=== PATIENT | female | born 1950 | race Caucasian/White ===

== ENCOUNTER 2023-04-04 18:53 | Observation (INO) | payer MEDICARE, SELFPAY ==
[2023-04-04] VITALS (20 sets, daily range): BP systolic 151–204; BP diastolic 70–98; PULSE 66–89; RESP 14–18; TEMP 36.9–37.1; O2SAT 92–99; BMI 32.9; BMI 33.8
--- NOTE | 2023-04-04 19:22 | ECG_ITS ---
[facility] Test Date: 2023-04-04 Pat Name: TANISHA MOORE Department: Room: - Gender: Female [place]: : 1950 Requested By: Edison Galicia Order Number: [id number] Reading MD: STORMY BHATIA Measurements Intervals [place] Rate: 77 P: 43 OR: 162 QRS: -11 QRSD: 98 T: 40 QT: 388 QTc: 419 Interpretive Statements 1100 Sinus rhythm 2420 RSR (QR) in lead V1/V2, consistent with right ventricular conduction delay Anteroseptal ischemia can't be excluded 9150 abnormal ECG Electronically Signed On 04-04-2023 22:21:48 EST by STORMY BHATIA
--- NOTE | 2023-04-04 19:22 | XR_ITS ---
The [address] [address] Patient Name: TANISHA MOORE MRN: [id number] date: 1950 Sex: F Assigned Patient Location: ER Current Patient Location: ER Accession/Order Number: [id number] Exam Date: 04/04/2023 19:25 Report Date: 04/04/2023 19:41 At the request of: ANNAMARIA SALINAS Procedure: XR chest 1V EXAM: XR chest 1V HISTORY: CVA COMPARISON: Chest x-ray 07/14/2021 and earlier TECHNIQUE: AP upright chest x-ray 7:26 PM FINDINGS: Lungs clear without infiltrate or edema or focal lung lesion. Cardiac silhouette prominent, accentuated by magnification without significant change. No definite mass or adenopathy. No pleural effusion or pneumothorax. XR/XR chest 1V IMPRESSION: Stable chest x-ray, no acute findings. Electronically authenticated by: BIBI AREVALO Date: 04/04/2023 19:41
--- NOTE | 2023-04-04 19:22 | CT_ITS ---
The [address] [address] Patient Name: TANISHA MOORE MRN: [id number] date: 1950 Sex: F Assigned Patient Location: ER Current Patient Location: ER Accession/Order Number: [id number] Exam Date: 04/04/2023 19:25 Report Date: 04/04/2023 19:40 At the request of: ANNAMARIA SALINAS Procedure: CT stroke head/brain wo con EXAM: CT stroke head/brain wo con HISTORY: Confusion since last night. TECHNIQUE: Axial CT scans through the head were obtained without IV contrast administration. Dose reduction techniques were achieved by using: automated exposure control and/or adjustment of mA and/or kV according to patient size and/or use of iterative reconstruction technique. COMPARISON: None. FINDINGS: Mild periventricular low attenuation in the cerebral hemispheres without associated mass effect. The brainstem and the cerebellum appear normal. The ventricular system and cortical sulci are prominent, secondary to cerebral volume loss. No area of abnormal mass effect, edema, or intracranial hemorrhage is shown. The visualized orbits show no abnormal mass. The visualized paranasal sinuses show no air-fluid level. Mastoid air cells are clear. CT/CT stroke head/brain wo con IMPRESSION: 1. Mild old microvascular ischemic change and age-related cerebral atrophy. 2. No acute intracranial process. Electronically authenticated by: SYDNEY HATCH Date: 04/04/2023 19:40
--- NOTE | 2023-04-04 19:39 | ED.GENADUL1 ---
HPI - General Adult General Chief complaint: Headache Stated complaint: Fever Covid + 04/04/23 Time Seen by Provider: 04/04/23 19:22 Source: patient Mode of arrival: walk-in Limitations: no limitations History of Present Illness HPI narrative: Patient is a 73-year-old female who presents to the emergency department with her son for the evaluation of multiple symptoms. She states last night she had a headache and had difficulty sleeping so she takes she took a COVID test which was positive. She states she was coming to the hospital to be evaluated because her son noted she had expressive aphasia. She has not had any slurred speech, visual changes, chest pain, shortness of breath, peripheral paresthesias. She has a history of 2 previous TIAs. At this time, patient is able to carry on a full conversation, she answers all questions appropriately and her son feels as though her expressive aphasia is better at this time. She has not had any fevers. No vomiting or diarrhea. Related Data Home Medications Medication Instructions Recorded Confirmed atorvastatin 20 mg tablet 20 mg PO BEDTIME 04/04/23 04/04/23 chlorthalidone 25 mg tablet 25 mg PO DAILY 04/04/23 04/04/23 digoxin 125 mcg (0.125 mg) tablet 0.125 mg PO .HS 04/04/23 04/04/23 magnesium oxide 400 mg (241.3 mg 400 mg PO .Q12 04/04/23 04/04/23 magnesium) tablet metoprolol tartrate 50 mg tablet 50 mg PO Q12H 04/04/23 04/04/23 valsartan 160 mg tablet 160 mg PO DAILY 04/04/23 04/04/23 warfarin 5 mg tablet 7.5 mg PO DAILY 04/04/23 04/04/23 Allergies Allergy/AdvReac Type Severity Reaction Status Date / Time No Known Drug Allergies Allergy Verified 04/04/23 19:19 Review of Systems ROS Constitutional Denies: fever or chills Eyes Denies: change in vision Ears, nose, mouth, and throat Denies: throat pain Cardiovascular Denies: chest pain Respiratory Denies: shortness of breath Gastrointestinal Denies: nausea or vomiting Musculoskeletal Denies: back pain or neck pain Integumentary/Breast Denies: rash Neurological Reports: headache Hematologic/Lymphatic Denies: easy bruising PFSH PFS Surgical History (Updated 04/04/23 @ 23:18 by Essence Luke) History of tubal ligation ?Z98.51 - Tubal ligation status (ICD-10) Family History (Updated 04/04/23 @ 23:18 by Essence Luke) Other Family history of CHF (congestive heart failure) Family history of hypertension Family history of myocardial infarction Social History (Updated 04/04/23 @ 23:19 by Essence Luke) Within the past year, how often did you have a drink containing alcohol: never Within the past year, how many standard drinks containing alcohol did you have on a typical day: 1 or 2 Within the past year, how often did you have six or more drinks on one occasion: never Total score: 0 Score interpretation: A score less than 3 is consistent with normal alcohol consumption. Smoking status: Never smoker Non-prescribed substance use: denies use Previous occupational history: retired Highest level of school completed/degree received: high school graduate Are you now , , , , never or living with a partner: In a typical week, how many times do you talk on the telephone with family, friends, or neighbors: 3 or more times per week How often do you get together with friends or relatives: 3 or more times per week Little interest or pleasure in doing things: not at all Feeling down, depressed, or hopeless: not at all Feel stressed/tense/nervous/anxious/difficulty sleeping: not at all Do you think of yourself as: straight/heterosexual Gender Identity: female Exam Narrative Exam Narrative: Gen.: Awake, alert, in no distress Head: Normocephalic, atraumatic ENT: Moist mucous membranes Respiratory: No respiratory distress, lungs clear bilaterally Cardio: Regular rate and rhythm Gastrointestinal: Abdomen is soft, nondistended and nontender to palpation Extremities: Moves extremities equally, no injuries noted Psych: Normal mood and affect Neuro: No focal neuro deficit; NIH stroke scale of 0 Skin: Warm, dry, intact Constitutional Vital Signs, click to edit/add: Last Vital Signs Temp 98.9 F 04/05/23 05:35 Pulse 64 04/05/23 06:00 Resp 18 04/05/23 05:35 BP 163/67 H 04/05/23 05:35 Pulse Ox 94 L 04/05/23 05:35 O2 Del Method Room Air 04/05/23 05:35 Course Vital Signs Vital signs: Vital Signs Temperature 98.7 F 04/04/23 19:12 Pulse Rate 89 04/04/23 19:12 Respiratory Rate 16 04/04/23 19:12 Blood Pressure 204/98 H 04/04/23 19:12 Pulse Oximetry 97 04/04/23 19:12 Oxygen Delivery Method Room Air 04/04/23 19:12 Temperature 98.9 F 04/05/23 05:35 Pulse Rate 64 04/05/23 06:00 Respiratory Rate 18 04/05/23 05:35 Blood Pressure 163/67 H 04/05/23 05:35 Pulse Oximetry 94 L 04/05/23 05:35 Oxygen Delivery Method Room Air 04/05/23 05:35 Medical Decision Making MDM Narrative Medical decision making narrative: On arrival to the ER, patient has an NIH stroke scale of 0. Blood pressure improved without labetalol that was ordered for her, CT of the brain, chest x-ray obtained. Patient was also sent for CT angio of the head and neck due to TIA symptoms although her son at bedside is in agreement that her symptoms have significantly improved and the patient states she is feeling well at this time. She is positive for COVID, INR is 2.77. Patient is not a tPA candidate, I discussed the case with Dr. Ibrahim at [facility] for stroke interventionalists. He is in agreement with treatment plan to keep the patient at this facility for TIA workup. Stable at time of admission. Medical Records Medical records reviewed: Yes I reviewed the patient's medical records Lab Data Lab results reviewed: Yes I reviewed the patient's lab results Labs: Lab Results 04/04/23 04/04/23 Range/Units 19:34 20:22 WBC 5.3 (4.0-11.0) 10^3/uL RBC 4.63 (4.20-5.40) 10^6/uL Hgb 13.0 (12.0-16.0) g/dL Hct 40.3 (36.0-48.0) % MCV 87.0 (81.0-99.0) fL MCH 28.1 (26.7-34.0) pg MCHC 32.3 (29.9-35.2) g/dL RDW 14.3 (11.0-15.0) % Plt Count 186 (150-450) 10^3/uL MPV 9.5 (9.5-13.5) fL Neut % (Auto) 69.8 (43.0-75.0) % Lymph % (Auto) 17.1 L (20.5-60.0) % [place] % (Auto) 11.0 (1.7-12.0) % Eos % (Auto) 1.1 (0.9-7.0) % Baso % (Auto) 0.4 (0.2-2.0) % Neut # (Auto) 3.7 (1.4-6.5) 10^3/uL Lymph # (Auto) 0.9 L (1.2-3.8) 10^3/uL [place] # (Auto) 0.6 (0.3-0.8) 10^3/uL Eos # (Auto) 0.1 (0.0-0.7) 10^3/uL Baso # (Auto) 0.0 (0.0-0.1) 10^3/uL Abs Immat Gran (auto) 0.03 (0.00-0.03) 10^3/uL Imm/Tot Granulo (auto) 0.6 H (0.0-0.5) % PT 27.7 H (9.0-11.6) sec INR 2.77 Sodium 143 (136-145) mmol/L Potassium 3.6 (3.5-5.1) mmol/L Chloride 104 (98-107) mmol/L Carbon Dioxide 26.2 (21.0-32.0) mmol/L Anion Gap 16.4 BUN 17.0 (7.0-18.0) mg/dL Creatinine 1.00 (0.55-1.02) mg/dL Est GFR ( Amer) >60 (>=60) Est GFR (Non-Af Amer) 55 L (>=60) BUN/Creatinine Ratio 17.0 Glucose 143 H (74-106) mg/dL Lactate 2.0 (0.4-2.0) mmol/L Calcium 9.3 (8.5-10.1) mg/dL Total Bilirubin 0.7 (0.2-1.0) mg/dL AST 33 (15-37) U/L ALT 53 (14-59) U/L Alkaline Phosphatase 111 (46-116) U/L Troponin I High Sens 6.0 (4.0-51.3) pg/mL C-Reactive Protein 0.96 H (<=0.50) mg/dL Total Protein 7.7 (6.4-8.2) g/dL Albumin 3.8 (3.4-5.0) g/dL Globulin 3.9 g/dL Albumin/Globulin Ratio 1.0 TSH 1.179 (0.358-3.740) uIU/mL Digoxin 0.3 L (0.9-2.0) ng/mL SARS-CoV-2 Ag (CV2AG) Positive A (NEGATIVE) Imaging Data CT scan - head: Attestation: I have reviewed the pertinent imaging results. Radiologist's impression: ITS Impressions Brain CT 04/04/23 19:22 IMPRESSION: 1. Mild old microvascular ischemic change and age-related cerebral atrophy. 2. No acute intracranial process. Electronically authenticated by: SYDNEY HATCH Date: 04/04/2023 19:40 Chest X-Ray 04/04/23 19:22 IMPRESSION: Stable chest x-ray, no acute findings. Electronically authenticated by: BIBI AREVALO Date: 04/04/2023 19:41 Head CTA 04/04/23 19:48 IMPRESSION: 1. No flow limiting arterial stenosis within the neck. 2. No evidence of an intracranial large vessel occlusion. Electronically authenticated by: EBONIE SOUZA Date: 04/04/2023 20:56 Neck CTA 04/04/23 19:48 IMPRESSION: 1. No flow limiting arterial stenosis within the neck. 2. No evidence of an intracranial large vessel occlusion. Electronically authenticated by: EBONIE SOUZA Date: 04/04/2023 20:56 ECG Data Attestation: I personally reviewed and interpreted this ECG as follows: (Normal sinus rhythm at a rate of 77, no acute ST elevation or ectopy. EKG reviewed by attending physician) Discharge Plan Discharge Chief Complaint: Headache Clinical Impression: TIA (transient ischemic attack), Headache, COVID-19 Patient Disposition: Admitted as Observation Condition: Good Discharge Date/Time: 04/04/23 23:00
[2023-04-04 19:44] LABS: Basophils Percent Auto 0.4 % (0.2-2.0); Eosinophils Absolute Auto 0.1 10^3/uL (0.0-0.7); Eosinophils Percent Auto 1.1 % (0.9-7.0); Hematocrit 40.3 % (36.0-48.0); Immature Granulocytes Abs Auto 0.03 10^3/uL (0.00-0.03); Immature Granulocytes Pct Auto 0.6 % (0.0-0.5); Lymphocytes Absolute Auto 0.9 10^3/uL (1.2-3.8); Lymphocytes Percent Auto 17.1 % (20.5-60.0); Mean Corpuscular HGB Conc 32.3 g/dL (29.9-35.2); Mean Corpuscular Hemoglobin 28.1 pg (26.7-34.0); Mean Platelet Volume 9.5 fL (9.5-13.5); Monocytes Absolute Auto 0.6 10^3/uL (0.3-0.8); Neutrophils Absolute Auto 3.7 10^3/uL (1.4-6.5); Neutrophils Percent Auto 69.8 % (43.0-75.0); Platelet Count 186 10^3/uL (150-450); Red Blood Count 4.63 10^6/uL (4.20-5.40); Red Cell Distribution Width 14.3 % (11.0-15.0); White Blood Count 5.3 10^3/uL (4.0-11.0)
--- NOTE | 2023-04-04 19:48 | CT_ITS ---
The [address] [address] Patient Name: TANISHA MOORE MRN: [id number] date: 1950 Sex: F Assigned Patient Location: ER Current Patient Location: ER Accession/Order Number: [id number] Exam Date: 04/04/2023 20:00 Report Date: 04/04/2023 20:56 At the request of: ANNAMARIA SALINAS Procedure: CT angio head EXAM: CT angio neck, CT angio head HISTORY: TIA COMPARISON: CTA head and neck from 07/14/2021. TECHNIQUE: Axial images were obtained from the aortic arch through [place] following the intravenous administration of contrast. Sagittal and coronal maximal intensity projections (MIP) of the head and neck were provided. Three-dimensional volume rendered reformations were also submitted. COMMENT: The integrity of the aortic arch, as well as origins of the brachiocephalic and left common carotid arteries have inadvertently been excluded from the volume of interest utilized to perform this study and are not evaluated. FINDINGS: CTA NECK: The brachiocephalic and left common carotid artery origins are again not included on the volume of interest utilized to perform this study and are not evaluated. The left subclavian artery is patent at its origin from the aortic arch. More distally, the left subclavian artery is also widely patent. Calcified results in mild segmental narrowing of the proximal right subclavian artery. There is a small amount of calcification in the region of the left carotid bifurcation. No hemodynamically significant region of extracranial carotid narrowing, dissection or evidence of carotid occlusion. The left vertebral artery is dominant with the right vertebral artery smaller in caliber. Both vertebral arteries are patent at their origins and throughout their course within the neck. Nonspecific nodular regions of relative under enhancement are seen within the thyroid on the left. CTA HEAD: Vascular calcifications are seen along the course of the carotid siphon. No flow limiting intracranial arterial stenosis or evidence of large vessel occlusion. There is no evidence of an intracranial aneurysm. The A1 segment of the right anterior cerebral artery is hypoplastic and much smaller than its counterpart on the left. This finding reflects developmental intracranial vascular variation. CT/CT angio head IMPRESSION: 1. No flow limiting arterial stenosis within the neck. 2. No evidence of an intracranial large vessel occlusion. Electronically authenticated by: EBONIE SOUZA Date: 04/04/2023 20:56
--- NOTE | 2023-04-04 19:48 | CT_ITS ---
The [address] [address] Patient Name: TANISHA MOORE MRN: [id number] date: 1950 Sex: F Assigned Patient Location: ER Current Patient Location: ER Accession/Order Number: [id number] Exam Date: 04/04/2023 20:00 Report Date: 04/04/2023 20:56 At the request of: ANNAMARIA SALINAS Procedure: CT angio neck EXAM: CT angio neck, CT angio head HISTORY: TIA COMPARISON: CTA head and neck from 07/14/2021. TECHNIQUE: Axial images were obtained from the aortic arch through [place] following the intravenous administration of contrast. Sagittal and coronal maximal intensity projections (MIP) of the head and neck were provided. Three-dimensional volume rendered reformations were also submitted. COMMENT: The integrity of the aortic arch, as well as origins of the brachiocephalic and left common carotid arteries have inadvertently been excluded from the volume of interest utilized to perform this study and are not evaluated. FINDINGS: CTA NECK: The brachiocephalic and left common carotid artery origins are again not included on the volume of interest utilized to perform this study and are not evaluated. The left subclavian artery is patent at its origin from the aortic arch. More distally, the left subclavian artery is also widely patent. Calcified results in mild segmental narrowing of the proximal right subclavian artery. There is a small amount of calcification in the region of the left carotid bifurcation. No hemodynamically significant region of extracranial carotid narrowing, dissection or evidence of carotid occlusion. The left vertebral artery is dominant with the right vertebral artery smaller in caliber. Both vertebral arteries are patent at their origins and throughout their course within the neck. Nonspecific nodular regions of relative under enhancement are seen within the thyroid on the left. CTA HEAD: Vascular calcifications are seen along the course of the carotid siphon. No flow limiting intracranial arterial stenosis or evidence of large vessel occlusion. There is no evidence of an intracranial aneurysm. The A1 segment of the right anterior cerebral artery is hypoplastic and much smaller than its counterpart on the left. This finding reflects developmental intracranial vascular variation. CT/CT angio neck IMPRESSION: 1. No flow limiting arterial stenosis within the neck. 2. No evidence of an intracranial large vessel occlusion. Electronically authenticated by: EBONIE SOUZA Date: 04/04/2023 20:56
[2023-04-04 19:59] LABS: INR 2.77; Prothrombin Time 27.7 sec (9.0-11.6)
[2023-04-04 20:05] LABS: Alanine Aminotransferase 53 U/L (14-59); Albumin Level 3.8 g/dL (3.4-5.0); Alkaline Phosphatase 111 U/L (46-116); Anion Gap 16.4; Aspartate Amino Transferase 33 U/L (15-37); Bilirubin Total 0.7 mg/dL (0.2-1.0); Calcium 9.3 mg/dL (8.5-10.1); Carbon Dioxide 26.2 mmol/L (21.0-32.0); Chloride 104 mmol/L (98-107); Estimated GFR (African America >60 (>=60); Estimated GFR (Non-African Ame 55 (>=60); Globulin 3.9 g/dL; Glucose 143 mg/dL (74-106); Potassium 3.6 mmol/L (3.5-5.1); Sodium 143 mmol/L (136-145); Total Protein 7.7 g/dL (6.4-8.2)
[2023-04-04 20:52] LABS: SARS-CoV-2 Ag POSITIVE (NEGATIVE)
[2023-04-04 22:00] LABS: Thyroid Stimulating Hormone 1.179 uIU/mL (0.358-3.740)
[2023-04-04 22:02] LABS: C Reactive Protein 0.96 mg/dL (<=0.50)
[2023-04-04 23:45] LABS: Digoxin 0.3 ng/mL (0.9-2.0)
[2023-04-05] VITALS (12 sets, daily range): BP systolic 142–178; BP diastolic 67–77; PULSE 60–74; RESP 18; TEMP 37.2–37.3; O2SAT 91–94
[2023-04-05] MEDS: MAGNESIUM OXIDE 400 MG TABLET PO ×2 (00:52→08:29)
[2023-04-05] MEDS: ATORVASTATIN CALCIUM 20 MG TABLET PO (00:52)
[2023-04-05] MEDS: METOPROLOL TARTRATE 50 MG TABLET PO ×2 (00:52→08:29)
[2023-04-05] MEDS: DIGOXIN 125 MCG TABLET PO (00:53)
[2023-04-05 05:29] LABS: INR 2.21; Prothrombin Time 22.4 sec (9.0-11.6)
[2023-04-05 05:31] LABS: Estimated Average Glucose 120 mg/dL; Glycohemoglobin A1C 5.8 % (4.5-6.2)
[2023-04-05 05:38] LABS: Anion Gap 14.2; Calcium 8.9 mg/dL (8.5-10.1); Carbon Dioxide 26.6 mmol/L (21.0-32.0); Chloride 105 mmol/L (98-107); Estimated GFR (African America >60 (>=60); Estimated GFR (Non-African Ame >60 (>=60); Glucose 108 mg/dL (74-106); Magnesium 2.1 mg/dL (1.8-2.4); Potassium 3.8 mmol/L (3.5-5.1); Sodium 142 mmol/L (136-145)
[2023-04-05 05:43] LABS: Cholesterol 150 mg/dL (<=200); HDL Cholesterol 53 mg/dL (40-60); Triglycerides 69 mg/dL (<=150); VLDL CHOLESTEROL 13.8 mg/dL
[2023-04-05 05:44] LABS: Chol HDL Ratio 2.8
--- NOTE | 2023-04-05 07:00 | CA_ITS ---
Patient Name: TANISHA MOORE MR#: [id number] : 1950 Exam Date: 04/05/2023 Ordering Doctor: DR ERMIAS HUMPHREY . ECHOCARDIOGRAM REPORT PROCEDURE: CA ECHO DOPPLER COMPLETE INDICATIONS: TIA, Covid+, h/o atrial fibrillation, h/o TIA's COMPARISON: None. DESCRIPTION: COMPLETE ECHOCARDIOGRAM Real-time transthoracic echocardiography with 2D, M-mode, spectral and color flow Doppler performed. QUALITY: Technical quality was good. 66 , 209#, BSA LEFT VENTRICLE: Normal chamber size. Normal left ventricular wall thickness. LV EF: Global left ventricular systolic function is hyperdynamic; visually estimated ejection fraction is 65 to 70%. No obvious wall motion abnormalities. DIASTOLIC: Normal diastolic function. ATRIAL SEPTUM: Agitated saline contrast (suboptimal study) reveals no intra-cardiac shunt. LEFT ATRIUM: Normal chamber size. RIGHT ATRIUM: Normal chamber size. RIGHT VENTRICLE: Normal chamber size. Normal right ventricular systolic function. TRICUSPID VALVE: Normal mobility and thickness. No stenosis with no regurgitation. Unable to assess right-sided pressures due to lack of measurable tricuspid regurgitation. MITRAL VALVE: Normal mobility and thickness. No evidence of mitral valve stenosis. There is no mitral annular calcification. No mitral regurgitation. AORTIC VALVE: Normal trileaflet appearance. No visible sclerosis. Normal leaflet mobility. No evidence of aortic valve stenosis. Trivial aortic regurgitation. AORTIC ROOT: Normal diameter and appearance. PULMONIC VALVE: Normal thickness and mobility. No stenosis. No regurgitation. PERICARDIUM: Anterior free space; trivial effusion versus fat pad. IVC: Not well visualized. CONCLUSION: 1. Global left ventricular systolic function is hyperdynamic; visually estimated ejection fraction 65 to 70% 2. Normal right ventricular size and systolic function 3. Normal diastolic function 4. No significant valvular abnormalities 5. Agitated saline contrast study shows no obvious intracardiac shunts 6. Anterior free space; trivial effusion versus fat pad Adult Echocardiography Procedure Report Left Ventricle LVEDD (3.7 - 5.6 cm): 5.08 cm LVESD (2.2 - 4.0 cm): 2.57 cm LVIVS thickness (0.6 - 1.2 cm): 0.78 cm LVPW thickness (0.5 - 1.0 cm): 0.74 cm LVOT Max Gradient: 4.09 mm[Hg] LVOT Area (cm2): 1.01 m/s Peak Velocity (LVOT): 1.01 m/s Mean Velocity (LVOT): 0.70 m/s LVOT Diameter 1.91 cm Left Atrium LA Volume Index (2D A2C): 29.85 ml/m2 Left Atrium Systolic Dimension: 3.16 cm Mitral Valve MV E to A Ratio: 0.69 Mitral Valve A-Wave Peak Velocity: 0.86 m/s Mitral Valve E-Wave Peak Velocity: 0.60 m/s Right Ventricle Aorta AO Root Diam: 3.18 cm Ascending Ao Diam: 2.92 cm Aortic Valve AoV Area (Peak Deven): 1.99 cm2, 1.99 cm2 AoV Area (VTI): 1.93 cm2, 1.93 cm2 Peak Velocity(Antegrade Flow): 1.45 m/s Peak Gradient(Antegrade Flow): 8.43 mm[Hg] Mean Velocity(Antegrade Flow): 0.97 m/s Mean Gradient(Antegrade Flow): 4.41 mm[Hg] Velocity Time Integral: 29.97 cm Tricuspid Valve Pulmonic Valve Mean Gradient: 2.82 mm[Hg], 2.38 mm[Hg] Mean Velocity: 0.78 m/s, 0.72 m/s Peak Velocity: 1.10 m/s Peak Gradient: 5.47 mm[Hg], 4.24 mm[Hg] Right Atrium Right Atrium Systolic Pressure: 19.88 ml, 19.88 ml Dictated by: Milagro Anders M.D. on 04/05/2023 at 15:43 Approved by: Milagro Anders M.D. on 04/05/2023 at 15:48
[2023-04-05] MEDS: LOSARTAN POTASSIUM 50 MG TABLET 100 MG PO (08:29)
[2023-04-05] MEDS: CHLORTHALIDONE 25 MG TABLET PO (08:29)
--- NOTE | 2023-04-05 10:57 | CM.NOTE ---
Rounds made with Dr. Rushing, pt will have MRI today. Pt asking about discharge to home, Dr. Rushing will discharge today if MRI negative.
--- NOTE | 2023-04-05 12:01 | PM.HP ---
H&P: HPI History of Present Illness Chief complaint: Fever Covid + 04/04/23 TIA COVID+ Narrative: 73 y/o female to ER with ENGLISH and covid positive. History of TIA in past and son noticed she wasn't acting right. Patient had a hard time finding words and felt like not thinking as clearly. No slurred speech. No weakness in arms or legs and no problems walking. No vertigo. To ER and CT head negative. CTA head and neck without stenosis. ER spoke to tele-neurology and recommended admission for stroke work up. Patient feels well this am and no deficits. Covid postive and mild cough and congestion. Afebrile. Review of Systems ROS Constitutional Denies: fever, chills or fatigue Cardiovascular Denies: chest pain, palpitations or edema Respiratory Reports: cough; Denies: shortness of breath or wheezing Gastrointestinal Denies: abdominal pain, nausea, vomiting or diarrhea Genitourinary Denies: painful urination Neurological Denies: numbness in extremities or weakness in extremities PFSH PFS Medical History (Updated 04/05/23 @ 07:56 by Primitivo Rushing MD) Headache ?R51.9 - Headache, unspecified (ICD-10) TIA (transient ischemic attack) ?G45.9 - Transient cerebral ischemic attack, unspecified (ICD-10) Surgical History (Updated 04/04/23 @ 23:18 by Essence Luke) History of tubal ligation ?Z98.51 - Tubal ligation status (ICD-10) Family History (Updated 04/04/23 @ 23:18 by Essence Luke) Other Family history of CHF (congestive heart failure) Family history of hypertension Family history of myocardial infarction Social History (Updated 04/04/23 @ 23:19 by Essence Luke) Within the past year, how often did you have a drink containing alcohol: never Within the past year, how many standard drinks containing alcohol did you have on a typical day: 1 or 2 Within the past year, how often did you have six or more drinks on one occasion: never Total score: 0 Score interpretation: A score less than 3 is consistent with normal alcohol consumption. Smoking status: Never smoker Non-prescribed substance use: denies use Previous occupational history: retired Highest level of school completed/degree received: high school graduate Are you now , , , , never or living with a partner: In a typical week, how many times do you talk on the telephone with family, friends, or neighbors: 3 or more times per week How often do you get together with friends or relatives: 3 or more times per week Little interest or pleasure in doing things: not at all Feeling down, depressed, or hopeless: not at all Feel stressed/tense/nervous/anxious/difficulty sleeping: not at all Do you think of yourself as: straight/heterosexual Gender Identity: female Meds Home Medications and Allergies Home Medications Medication Instructions Recorded Confirmed Type atorvastatin 20 mg tablet 20 mg PO BEDTIME 04/04/23 04/04/23 History chlorthalidone 25 mg tablet 25 mg PO DAILY 04/04/23 04/04/23 History digoxin 125 mcg (0.125 mg) tablet 0.125 mg PO .HS 04/04/23 04/04/23 History magnesium oxide 400 mg (241.3 mg 400 mg PO .Q12 04/04/23 04/04/23 History magnesium) tablet metoprolol tartrate 50 mg tablet 50 mg PO Q12H 04/04/23 04/04/23 History valsartan 160 mg tablet 160 mg PO DAILY 04/04/23 04/04/23 History warfarin 5 mg tablet 7.5 mg PO DAILY 04/04/23 04/04/23 History Allergies Allergy/AdvReac Type Severity Reaction Status Date / Time No Known Drug Allergies Allergy Verified 04/04/23 19:19 Exam Constitutional Vital Signs, click to edit/add: Last Vital Signs Temp 98.9 F 04/05/23 05:35 Pulse 62 04/05/23 09:55 Resp 18 04/05/23 05:35 BP 147/75 H 04/05/23 08:29 Pulse Ox 94 L 04/05/23 05:35 O2 Del Method Room Air 04/05/23 05:35 Documenting provider has reviewed patient's vital signs: yes Common normals: oriented x3 and alert HENMT Common normals: normocephalic Eye Common normals: PERRL and EOMs intact bilaterally Respiratory Common normals: normal respiratory effort and clear to auscultation bilaterally Cardio Common normals: regular rate, regular rhythm, no gallops, no murmurs and no rub GI Common normals: Normal to inspection, nondistended, normoactive bowel sounds present and non-tender Extremity Common normals: no pedal edema Results Labs Labs: Short CBC 04/04/23 Range/Units 19:34 WBC 5.3 (4.0-11.0) 10^3/uL Hgb 13.0 (12.0-16.0) g/dL Hct 40.3 (36.0-48.0) % Plt Count 186 (150-450) 10^3/uL BMP 04/04/23 04/05/23 19:34 04:36 Sodium 143 142 Potassium 3.6 3.8 Chloride 104 105 Carbon Dioxide 26.2 26.6 BUN 17.0 16.0 Creatinine 1.00 0.80 Glucose 143 H 108 H Calcium 9.3 8.9 Liver Function 04/04/23 Range/Units 19:34 Total Bilirubin 0.7 (0.2-1.0) mg/dL AST 33 (15-37) U/L ALT 53 (14-59) U/L Alkaline Phosphatase 111 (46-116) U/L Albumin 3.8 (3.4-5.0) g/dL Assessment and Plan Assessment and Plan (1) Speech disturbance: (2) COVID-19: (3) History of TIA (transient ischemic attack): (4) Paroxysmal atrial fibrillation: (5) Benign essential hypertension: (6) Dyslipidemia: (7) Obesity (BMI 30-39.9): Plan Presented with Covid-19 and episode of abnormal speech. Neurology recommended stroke work up and ordered MRI brain and echo with agitated saline. Resumed home medication. On coumadin and INR therapeutic. Possible episode related to covid. If MRI normal will discharge home later today.
--- NOTE | 2023-04-05 15:00 | MR_ITS ---
The [address] [address] Patient Name: TANISHA MOORE MRN: [id number] date: 1950 Sex: F Assigned Patient Location: [place] Current Patient Location: [place] Accession/Order Number: [id number] Exam Date: 04/05/2023 15:15 Report Date: 04/05/2023 16:30 At the request of: ERMIAS HUMPHREY Procedure: MR head/brain wo con EXAM: MR head/brain wo con HISTORY: Expressive aphasia, hx TIA COMPARISON: CT brain 04/04/2023. TECHNIQUE: MRI of the brain was performed without contrast. FINDINGS: There is no restricted diffusion to suggest acute infarct. There is no midline shift, mass effect, or abnormal extraaxial fluid collections. The cortical sulci are mildly enlarged, consistent with age appropriate cerebral atrophy. There is no hydrocephalus. There is a tiny chronic lacunar infarct within the left periatrial white matter. There are a few nonspecific scattered foci of T2/FLAIR signal abnormality in the subcortical and periventricular white matter, likely reflect chronic microvascular ischemic changes. The major intracranial flow voids are visualized. The cerebellar tonsils are normal in position. The orbits are unremarkable. The paranasal sinuses show no air-fluid level. Mild mucosal thickening of bilateral maxillary sinus, ethmoid air cells and a small retention cyst within the left maxillary sinus. The mastoid air cells are clear. The calvarium and extracranial soft tissues are unremarkable. MR/MR head/brain wo con IMPRESSION: No acute intracranial abnormality. Remote tiny lacunar infarct within the left periatrial white matter. Mild chronic microvascular ischemia and involutional changes. Electronically authenticated by: GETACHEW RAMIRES Date: 04/05/2023 16:30
--- NOTE | 2023-04-05 16:11 | CM.NOTE ---
Medicare Outpatient Observation Notice discussed with pt, pt verbalizes understanding and signs paper. Original given to pt and copy placed on pt's chart.
[2023-04-05] MEDS: ACETAMINOPHEN 325 MG TABLET 650 MG PO (17:13)
== END 2023-04-05 19:00 | disposition home or self-care (01) ==
LOC: ER 21:26 → MS 23:08
PROVIDERS: Physician Assistant; Registered Nurse; Admitting Provider Family Medicine; Emergency Provider Internal Medicine; PCP Family Medicine; Visit Provider Family Medicine
DX: I67.9 Cerebrovascular disease, unspecified (principal); R47.89 Other speech disturbances; U07.1 COVID-19; I48.0 Paroxysmal atrial fibrillation; I10 Essential (primary) hypertension; E78.5 Hyperlipidemia, unspecified; E66.9 Obesity, unspecified; Z86.73 Personal history of transient ischemic attack (TIA), and cerebral infarction without residual deficits; Z98.51 Tubal ligation status; Z79.01 Long term (current) use of anticoagulants; Z79.899 Other long term (current) drug therapy; Z86.16 Personal history of COVID-19; R51.9 Headache, unspecified; Z68.33 Body mass index [BMI] 33.0-33.9, adult
CPT/HCPCS: 36415; 70450; 70496; 70498; 70551; 71045; 80048; 80053; 80061; 80162; 83036; 83605; 83735; 84443; 84484; 85025; 85610; 86140; 87811; 92523; 93005; 93306; 97162; 97165; 99285; G0378; Q3014; Q9967